=== PATIENT | male | born 1950 | race Hispanic/Latino ===

== ENCOUNTER 2019-04-05 09:00 | Emergency (ER) | payer OTHER ==
[2019-04-05] MEDS ORDERED: KETOROLAC TROMETHAMINE 30MG/ML ONE (10:31)
== END 2019-04-05 10:55 | disposition home or self-care (01) ==
LOC: EDH 09:00
DX: M77.32 Calcaneal spur, left foot (principal); M79.672 Pain in left foot; E11.9 Type 2 diabetes mellitus without complications; I10 Essential (primary) hypertension; E78.5 Hyperlipidemia, unspecified; Z90.49 Acquired absence of other specified parts of digestive tract; Z72.0 Tobacco use
CPT/HCPCS: 73630; 96372; 99284; J1885

== ENCOUNTER 2021-09-06 21:17 | Inpatient (IN) | payer MEDICARE, OTHER ==
[~2021-09-06] VITALS: Ht 167.6 cm; Wt 103.8 kg
[2021-09-06] MEDS ORDERED: ACETAMINOPHEN 500 MG TABLET PO ONE (22:00)
[2021-09-06] MEDS ORDERED: 0.9%NACL 1000ML 1,000 ML IV ONE (22:00)
[2021-09-06 22:05] LABS: ABG BASE EXCESS 2.2 mmol/L (-2.0-3.0); ABG OXYGEN SATURATION 97.8 % (95.0-99.0); ABG PCO2 38 mmHg (35-48)
[2021-09-06 22:07] LABS: BASOPHILS % (AUTO) 0.4 % (0.0-5.0); EOSINOPHILS % (AUTO) 0.7 % (0.0-8.0); HEMATOCRIT 47.3 % (42-54); LYMPHOCYTES % (AUTO) 2.5 % (21.0-51.0); MEAN CORPUSCULAR HEMOGLOBIN 31.4 pg (27.0-33.0); MEAN CORPUSCULAR HGB CONC 34.7 g/dL (32.0-36.0); MEAN CORPUSCULAR VOLUME 90.4 fL (79-99); NEUTROPHILS % (AUTO) 91.8 % (40.0-77.0); PLATELET COUNT (AUTO) 158 K/uL (130-400); RED BLOOD CELL COUNT(AUTO) 5.23 MIL/uL (4.50-6.20); RED CELL DISTRIBUTION WIDTH 12.2 % (11.0-15.5); WHITE BLOOD COUNT (AUTO) 13.3 K/uL (4.8-10.8)
[2021-09-06 22:22] LABS: CARBON DIOXIDE 28 mmol/L (21-32); CHLORIDE 95 mmol/L (101-111); CREATININE 0.9 mg/dL (0.5-1.5); GLOMERULAR FILTR. RATE CALC 89 mL/min (>60); GLUCOSE,RANDOM 289 mg/dL (70-105); POTASSIUM 3.8 mmol/L (3.5-5.1); SODIUM SERUM 131 mmol/L (136-145); UREA NITROGEN, BLOOD 12 mg/dL (7-18)
[2021-09-06 22:24] LABS: INR 1.05 (0.85-1.15); PROTHROMBIN TIME 11.4 SEC (9.6-11.6)
[2021-09-06 22:26] LABS: ALANINE AMINOTRANSFERASE 19 U/L (12-78); ALBUMIN 3.5 g/dL (3.5-5.0); ALCOHOL, BLOOD < 3 mg/dL (0-10); ASPARTATE AMINOTRANSFERASE 18 U/L (10-37); BILIRUBIN,TOTAL 0.5 mg/dL (0.2-1.0); CREATINE KINASE, TOTAL 138 U/L (21-232); TOTAL PROTEIN, SERUM 7.4 g/dL (6.0-8.3)
[2021-09-06 22:45] LABS: APPEARANCE,URINE Cloudy (CLEAR); BILIRUBIN,URINE Negative (NEGATIVE); COLOR,URINE Yellow (YELLOW); GLUCOSE, URINE (UA) >=1000 mg/dL (NEGATIVE); KETONES,URINE Negative (NEGATIVE); LEUKOCYTE ESTERASE ,URINE Negative (NEGATIVE); NITRATE,URINE Negative (NEGATIVE); OCCULT BLOOD,URINE Negative (NEGATIVE); PROTEIN,URINE POS 1+ mg/dL (NEGATIVE)
[2021-09-06 22:54] LABS: BACTERIA,URINE None Seen /HPF (None Seen); RBC,URINE None Seen /HPF (0-1); SQUAMOUS EPITHELIAL CELL,UR Rare /HPF (0-2); WBC,URINE None Seen /HPF (0-1); YEAST,URINE BUDDING None Seen /HPF (None Seen)
[2021-09-06 23:20] LABS: AMPHET/METH SCREEN,URINE NEGATIVE (NEGATIVE); BARBITURATE SCREEN, URINE NEGATIVE (NEGATIVE); BENZODIAZEPINES SCREEN,URINE NEGATIVE (NEGATIVE); CANNABINOID SCREEN,URINE NEGATIVE (NEGATIVE); COCAINE SCREEN,URINE NEGATIVE (NEGATIVE); OPIATE SCREEN,URINE NEGATIVE (NEGATIVE); PHENCYCLIDINE SCREEN,URINE NEGATIVE (NEGATIVE)
[2021-09-06] MEDS ORDERED: AZITHROMYCIN 500MG VIAL IVPB ONE (23:30)
[2021-09-06] MEDS ORDERED: CEFTRIAXONE 1G VIAL IVP ONE (23:30)
[2021-09-06] MEDS ORDERED: 0.9% NACL 250ML IVPB ONE (23:30)
[2021-09-06] MEDS ORDERED: AZITHROMYCIN 500MG+NS 250ML 250 ML IV ONE (23:47)
[2021-09-07] MEDS ORDERED: ZOLPIDEM TARTRATE 5 MG TAB PO PRN (00:30)
[2021-09-07] MEDS ORDERED: ACETAMINOPHEN 325 MG TAB PO PRN ×2 (00:30)
[2021-09-07] MEDS ORDERED: NITROGLYCERIN 0.4 MG SL TAB SL PRN (00:30)
[2021-09-07] MEDS ORDERED: IPRATROPIUM/ALBUTEROL SULFATE 3 ML SOLUTION IH PRN (00:30)
[2021-09-07] MEDS ORDERED: GLUCAGON 1MG KIT 1 MG ML IM PRN (00:30)
[2021-09-07] MEDS ORDERED: GUAIFENESIN-DM 200/20 MG 10 ML PO PRN (00:30)
[2021-09-07] MEDS ORDERED: MAG/ALUM/SIMETH 30 ML UDCUP PO PRN (00:30)
[2021-09-07] MEDS ORDERED: DEXTROSE 50%-WATER 50 ML DISP.SYRIN IV PRN (00:30)
[2021-09-07] MEDS ORDERED: LACTULOSE 20 GM/30 ML UDCUP PO PRN (00:30)
[2021-09-07] MEDS ORDERED: LABETALOL 20MG SYG IV PRN (00:30)
[2021-09-07] MEDS ORDERED: TRAZ-185 PO (01:02)
[2021-09-07] MEDS ORDERED: VALS80TA30 PO (01:02)
[2021-09-07 01:45] VITALS: BP 130/73
[2021-09-07] MEDS ORDERED: PLEC3TAB2 PO (02:14)
[2021-09-07] MEDS ORDERED: INSU200I4 SQ (02:14)
[2021-09-07 04:30] VITALS: BP 139/66
[2021-09-07] MEDS ORDERED: BENZONATATE 100 MG CAPSULE PO SCH (06:00)
[2021-09-07] MEDS ORDERED: TRAZODONE HCL 50 MG TAB PO SCH (06:00)
[2021-09-07] MEDS: INSULIN HUMULIN R 100 UNIT/ML 3ML SQ SCH ×4 (06:18→21:26)
[2021-09-07 06:32] LABS: HEMATOCRIT 48.9 % (42-54); MEAN CORPUSCULAR HEMOGLOBIN 30.8 pg (27.0-33.0); MEAN CORPUSCULAR HGB CONC 33.7 g/dL (32.0-36.0); MEAN CORPUSCULAR VOLUME 91.4 fL (79-99); PLATELET COUNT (AUTO) 176 K/uL (130-400); RED BLOOD CELL COUNT(AUTO) 5.35 MIL/uL (4.50-6.20); RED CELL DISTRIBUTION WIDTH 12.5 % (11.0-15.5); WHITE BLOOD COUNT (AUTO) 9.1 K/uL (4.8-10.8)
[2021-09-07 06:45] LABS: AMMONIA 16 umol/L (11-32)
[2021-09-07 07:00] VITALS: BP 126/67
[2021-09-07 07:18] LABS: CARBON DIOXIDE 28 mmol/L (21-32); CHLORIDE 101 mmol/L (101-111); CREATININE 0.7 mg/dL (0.5-1.5); GLOMERULAR FILTR. RATE CALC 119 mL/min (>60); GLUCOSE,RANDOM 197 mg/dL (70-105); POTASSIUM 3.8 mmol/L (3.5-5.1); SODIUM SERUM 136 mmol/L (136-145); THYROID STIMULATING HORMONE 0.96 uIU/mL (0.36-3.74); UREA NITROGEN, BLOOD 9 mg/dL (7-18)
[2021-09-07 07:43] LABS: BAND NEUTROPHILS % (MANUAL) 1 % (0-2); LYMPHOCYTES % (MANUAL) 4 % (22-44); MAN.DIFF COMMENT-IMPRESSION MANUAL DIFFERENTIAL; MONOCYTES % (MANUAL) 6 % (2-9); PLATELET MORPHOLOGY COMMENT ADEQUATE; SEGMENTED NEUTROPHILS % 89 % (40-70)
[2021-09-07] MEDS ORDERED: DIAZEPAM 5 MG TABLET PO PRN (08:00)
[2021-09-07] MEDS: ENOXAPARIN SODIUM 40 MG/0.4 ML SYRINGE SQ SCH ×2 (09:00→10:17)
[2021-09-07] MEDS: PLECANATIDE 3 MG PO SCH (09:00)
[2021-09-07] MEDS: FAMOTIDINE 20MG VIAL IV SCH (10:03)
[2021-09-07] MEDS: LOSARTAN 50 MG TABLET PO SCH (10:04)
[2021-09-07] MEDS: CEFTRIAXONE 1G VIAL IVP SCH (10:04)
[2021-09-07] MEDS: BENZONATATE 100 MG CAPSULE PO SCH ×2 (10:16→16:29)
[2021-09-07 11:00] VITALS: BP 130/82
[2021-09-07 15:00] VITALS: BP 152/85
[2021-09-07 20:00] VITALS: BP 126/71
[2021-09-07] MEDS ORDERED: LORAZEPAM 1 MG TABLET PO ONE (21:00)
[2021-09-07] MEDS ORDERED: AZITHROMYCIN 500MG VIAL IVPB SCH (21:00)
[2021-09-07] MEDS: RISPERIDONE 1 MG TABLET PO SCH (21:27)
[2021-09-07] MEDS: MIRTAZAPINE 15 MG TABLET PO SCH (21:28)
[2021-09-07] MEDS ORDERED: AZITHROMYCIN 500MG+NS 250ML 250 ML IV ONE (22:47)
[2021-09-07] MEDS ORDERED: 0.9% NACL 250ML 250 ML ONE (22:50)
[2021-09-08] VITALS: BP 148/81
[2021-09-08] MEDS: BENZONATATE 100 MG CAPSULE PO SCH ×3 (01:01→16:51)
[2021-09-08 04:00] VITALS: BP 132/75
[2021-09-08 06:14] LABS: HEMATOCRIT 46.7 % (42-54); MEAN CORPUSCULAR HGB CONC 33.4 g/dL (32.0-36.0); MEAN CORPUSCULAR VOLUME 92.7 fL (79-99); RED BLOOD CELL COUNT(AUTO) 5.04 MIL/uL (4.50-6.20); RED CELL DISTRIBUTION WIDTH 12.8 % (11.0-15.5); WHITE BLOOD COUNT (AUTO) 8.1 K/uL (4.8-10.8)
[2021-09-08] MEDS: INSULIN HUMULIN R 100 UNIT/ML 3ML SQ SCH ×4 (06:23→21:33)
[2021-09-08 06:34] LABS: CREATININE 0.7 mg/dL (0.5-1.5); POTASSIUM 3.7 mmol/L (3.5-5.1)
[2021-09-08 08:00] VITALS: BP 138/80
[2021-09-08] MEDS: PLECANATIDE 3 MG PO SCH (09:00)
[2021-09-08] MEDS: FAMOTIDINE 20MG VIAL IV SCH (09:08)
[2021-09-08] MEDS: LOSARTAN 50 MG TABLET PO SCH (09:09)
[2021-09-08] MEDS: RISPERIDONE 1 MG TABLET PO SCH ×2 (09:09→20:14)
[2021-09-08] MEDS: ENOXAPARIN SODIUM 40 MG/0.4 ML SYRINGE SQ SCH (09:09)
[2021-09-08] MEDS: CEFTRIAXONE 1G VIAL IVP SCH (09:09)
[2021-09-08 12:00] VITALS: BP 107/67
[2021-09-08 16:30] VITALS: BP 120/73
[2021-09-08 20:00] VITALS: BP 125/64
[2021-09-08] MEDS ORDERED: 0.9% NACL 250ML 250 ML ONE (20:11)
[2021-09-08] MEDS: MIRTAZAPINE 15 MG TABLET PO SCH (20:14)
[2021-09-08] MEDS ORDERED: AZITHROMYCIN 500MG+NS 250ML IV SCH (21:00)
[2021-09-09] VITALS: BP 126/76
[2021-09-09] MEDS: BENZONATATE 100 MG CAPSULE PO SCH ×3 (01:34→17:00)
[2021-09-09 04:00] VITALS: BP 120/74
[2021-09-09] MEDS: INSULIN HUMULIN R 100 UNIT/ML 3ML SQ SCH ×4 (06:35→16:30)
[2021-09-09 08:00] VITALS: BP 118/64
[2021-09-09] MEDS: PLECANATIDE 3 MG PO SCH (09:00)
[2021-09-09] MEDS: CEFTRIAXONE 1G VIAL IVP SCH (09:38)
[2021-09-09] MEDS: FAMOTIDINE 20MG VIAL IV SCH (09:38)
[2021-09-09] MEDS: LOSARTAN 50 MG TABLET PO SCH (09:38)
[2021-09-09] MEDS: RISPERIDONE 1 MG TABLET PO SCH (09:38)
[2021-09-09] MEDS: ENOXAPARIN SODIUM 40 MG/0.4 ML SYRINGE SQ SCH (09:39)
[2021-09-09 12:00] VITALS: BP 134/94
[2021-09-09] MEDS ORDERED: ALBU90AE IH (13:06)
[2021-09-09] MEDS ORDERED: LEVO500T90 PO (13:06)
[2021-09-09 16:30] VITALS: BP 124/82
== END 2021-09-09 18:00 | disposition home or self-care (01) | DRG 637 ==
LOC: EDH 21:17 → EDHIP 09-07 00:13 → OBSVTOIN 09-07 00:13 → 3CH 09-07 01:07
PROVIDERS: ADMIT Internal Medicine Critical Care Medicine; ATTEND Internal Medicine Critical Care Medicine
PROC: 5A09357 Assistance with Respiratory Ventilation, Less than 24 Consecutive Hours, Continuous Positive Airway Pressure (ICD-10-PCS; principal; 2021-09-08)
PROC: 5A09357 Assistance with Respiratory Ventilation, Less than 24 Consecutive Hours, Continuous Positive Airway Pressure (ICD-10-PCS; 2021-09-09)
DX: E11.649 Type 2 diabetes mellitus with hypoglycemia without coma (principal); J18.9 Pneumonia, unspecified organism; J44.0 Chronic obstructive pulmonary disease with (acute) lower respiratory infection; J44.1 Chronic obstructive pulmonary disease with (acute) exacerbation; E66.2 Morbid (severe) obesity with alveolar hypoventilation; F31.9 Bipolar disorder, unspecified; Z20.822 Contact with and (suspected) exposure to COVID-19; F41.1 Generalized anxiety disorder; F20.9 Schizophrenia, unspecified; E78.5 Hyperlipidemia, unspecified; I10 Essential (primary) hypertension; Z68.36 Body mass index [BMI] 36.0-36.9, adult; Z79.4 Long term (current) use of insulin
CPT/HCPCS: 36415; 36600; 70450; 71045; 80048; 80053; 80305; 81001; 82010; 82140; 82550; 82607; 82746; 82803; 82948; 83605; 84145; 84443; 84484; 85025; 85027; 85610; 87040; 87088; 87635; 87804; 93005; 94660; 94664; C9803; G0378; J0456; J0696; J1650; J1815; J3490; J7030; J7050

== ENCOUNTER 2022-04-12 04:55 | Emergency (ER) | payer MEDICARE ==
[~2022-04-12] VITALS: Ht 167.6 cm; Wt 126.1 kg
[~2022-04-12 04:55] MED LIST: ALBU90AE IH; INSU200I4 SQ; LEVO500T90 PO; PLEC3TAB2 PO; TRAZ-185 PO; VALS80TA30 PO
[2022-04-12 06:06] LABS: BASOPHILS % (AUTO) 0.5 % (0.0-5.0); EOSINOPHILS % (AUTO) 1.5 % (0.0-8.0); HEMATOCRIT 45.6 % (42-54); LYMPHOCYTES % (AUTO) 20.4 % (21.0-51.0); MEAN CORPUSCULAR HEMOGLOBIN 30.7 pg (27.0-33.0); MEAN CORPUSCULAR HGB CONC 33.6 g/dL (32.0-36.0); MEAN CORPUSCULAR VOLUME 91.4 fL (79-99); NEUTROPHILS % (AUTO) 67.8 % (40.0-77.0); PLATELET COUNT (AUTO) 239 K/uL (130-400); RED BLOOD CELL COUNT(AUTO) 4.99 MIL/uL (4.50-6.20); RED CELL DISTRIBUTION WIDTH 12.2 % (11.0-15.5); WHITE BLOOD COUNT (AUTO) 17.7 K/uL (4.8-10.8)
[2022-04-12 06:20] LABS: POTASSIUM 3.8 mmol/L (3.5-5.1)
[2022-04-12 06:25] LABS: BILIRUBIN,TOTAL 0.4 mg/dL (0.2-1.0); TOTAL PROTEIN, SERUM 7.5 g/dL (6.0-8.3)
[2022-04-12 06:43] LABS: CREATININE 0.8 mg/dL (0.5-1.5)
[2022-04-12 07:49] VITALS: BP 117/71
[2022-04-12] MEDS ORDERED: CEFTRIAXONE 1G VIAL IVP ONE (08:30)
[2022-04-12] MEDS ORDERED: DOXYCYCLINE HYCLATE 100 MG TABLET PO SCH (08:30)
[2022-04-12] MEDS ORDERED: DOXY-336 PO (08:58)
== END 2022-04-12 09:07 | disposition home or self-care (01) ==
LOC: EDH 04:55
DX: J20.8 Acute bronchitis due to other specified organisms (principal); B96.89 Other specified bacterial agents as the cause of diseases classified elsewhere; Z20.822 Contact with and (suspected) exposure to COVID-19; E11.9 Type 2 diabetes mellitus without complications; E78.00 Pure hypercholesterolemia, unspecified; F20.9 Schizophrenia, unspecified; I11.9 Hypertensive heart disease without heart failure; Z79.899 Other long term (current) drug therapy
CPT/HCPCS: 36415; 71045; 80053; 85025; 87635; 87804 ×2; 87880; 96374; 99284; C9803; J0696

== ENCOUNTER 2023-01-22 11:30 | Emergency (ER) | payer MEDICARE, OTHER ==
[~2023-01-22] VITALS: Ht 167.6 cm; Wt 104.3 kg
[~2023-01-22 11:30] MED LIST changes: +DOXY-469 PO; +LEVO-70 PO; -LEVO500T90 PO
[2023-01-22 12:42] LABS: BASOPHILS % (AUTO) 0.6 % (0.0-5.0); EOSINOPHILS % (AUTO) 2.2 % (0.0-8.0); HEMATOCRIT 47.1 % (42-54); LYMPHOCYTES % (AUTO) 24.7 % (21.0-51.0); MEAN CORPUSCULAR HGB CONC 33.3 g/dL (32.0-36.0); MEAN CORPUSCULAR VOLUME 89.9 fL (79-99); MONOCYTES % (AUTO) 7.8 % (3.0-13.0); NEUTROPHILS % (AUTO) 64.1 % (40.0-77.0); PLATELET COUNT (AUTO) 164 K/uL (130-400); RED BLOOD CELL COUNT(AUTO) 5.24 MIL/uL (4.50-6.20); RED CELL DISTRIBUTION WIDTH 12.6 % (11.0-15.5); WHITE BLOOD COUNT (AUTO) 11.2 K/uL (4.8-10.8)
[2023-01-22 12:51] LABS: CREATININE 0.7 mg/dL (0.5-1.5); POTASSIUM 4.1 mmol/L (3.5-5.1)
[2023-01-22 12:55] LABS: ALBUMIN 3.2 g/dL (3.5-5.0); TOTAL PROTEIN, SERUM 7.1 g/dL (6.0-8.3)
[2023-01-22 13:02] LABS: APPEARANCE,URINE CLEAR (CLEAR); BILIRUBIN,URINE NEGATIVE (NEGATIVE); COLOR,URINE LIGHT-YELLOW (YELLOW); GLUCOSE, URINE (UA) >=1000 mg/dL (NEGATIVE); KETONES,URINE NEGATIVE (NEGATIVE); LEUKOCYTE ESTERASE ,URINE NEGATIVE Leu/uL (NEGATIVE); MUCUS,URINE RARE LPF (None Seen); NITRATE,URINE NEGATIVE (NEGATIVE); OCCULT BLOOD,URINE NEGATIVE (NEGATIVE); PH,URINE 5.5 (5.0-8.0); PROTEIN,URINE 20 mg/dL (NEGATIVE); UROBILINOGEN,URINE 0.2 mg/dL (0.2-1.0); WBC,URINE 0-1 /HPF (0-1)
[2023-01-22] MEDS ORDERED: NAPR375T6 PO (14:33)
[2023-01-22 14:37] VITALS: BP 142/78
== END 2023-01-22 14:51 | disposition home or self-care (01) ==
LOC: EDH 11:30
DX: R59.9 Enlarged lymph nodes, unspecified (principal); M25.552 Pain in left hip; E11.9 Type 2 diabetes mellitus without complications; E78.00 Pure hypercholesterolemia, unspecified; F20.9 Schizophrenia, unspecified; F41.9 Anxiety disorder, unspecified; I10 Essential (primary) hypertension; M19.90 Unspecified osteoarthritis, unspecified site; Z79.899 Other long term (current) drug therapy; Z90.49 Acquired absence of other specified parts of digestive tract
CPT/HCPCS: 36415; 76882; 80053; 81001; 85025

== ENCOUNTER → 2023-03-24 | Outpatient (CLI) | payer OTHER ==
[~2023-03-24] MED LIST changes: +NAPR375T6 PO
== END | disposition home or self-care (01) ==
LOC: RAH 14:17
PROVIDERS: ATTEND Internal Medicine
DX: M47.26 Other spondylosis with radiculopathy, lumbar region (principal); M43.16 Spondylolisthesis, lumbar region; M47.812 Spondylosis without myelopathy or radiculopathy, cervical region; M48.02 Spinal stenosis, cervical region; M19.012 Primary osteoarthritis, left shoulder; M19.011 Primary osteoarthritis, right shoulder; M25.512 Pain in left shoulder; M25.511 Pain in right shoulder
CPT/HCPCS: 72040; 72100; 73030

== ENCOUNTER 2023-05-13 15:40 | Emergency (ER) | payer OTHER ==
[~2023-05-13] VITALS: Ht 167.6 cm; Wt 104.3 kg
[2023-05-13 15:46] VITALS: BP 130/84
[2023-05-13] MEDS ORDERED: HYDR-4060 PO (16:48)
== END 2023-05-13 16:56 | disposition home or self-care (01) ==
LOC: EDH 15:40
DX: M72.2 Plantar fascial fibromatosis (principal); M19.90 Unspecified osteoarthritis, unspecified site; I10 Essential (primary) hypertension; F32.A Depression, unspecified; E78.00 Pure hypercholesterolemia, unspecified; E11.9 Type 2 diabetes mellitus without complications; Z79.899 Other long term (current) drug therapy; Z90.49 Acquired absence of other specified parts of digestive tract

== ENCOUNTER → 2024-07-04 | Emergency (ER) | payer OTHER ==
[~2024-07-04] VITALS: Ht 167.6 cm; Wt 104.3 kg
[~2024-07-04] MED LIST changes: -DOXY-469 PO; +DOXY100C61 PO; +HYDR-4060 PO
[2024-07-04] MEDS: TRAMADOL HCL 50 MG TABLET PO ONE (10:30)
[2024-07-04 10:42] LABS: BASOPHILS # (AUTO) 0.07 K/uL (0.00-0.20); BASOPHILS % (AUTO) 0.5 % (0.0-5.0); EOSINOPHILS # (AUTO) 0.34 K/uL (0.00-0.70); EOSINOPHILS % (AUTO) 2.5 % (0.0-8.0); HEMATOCRIT 43.4 % (42-54); IMMATURE GRANULOCYTE ABSOLUTE 0.08 K/uL (0-1); LYMPHOCYTES # (AUTO) 3.9 K/uL (1.0-4.8); LYMPHOCYTES % (AUTO) 28.9 % (21.0-51.0); MEAN CORPUSCULAR HEMOGLOBIN 31.1 pg (27.0-33.0); MEAN CORPUSCULAR HGB CONC 34.8 g/dL (32.0-36.0); MEAN CORPUSCULAR VOLUME 89.3 fL (79-99); MONOCYTES # (AUTO) 1.1 K/uL (0.1-1.0); MONOCYTES % (AUTO) 8.1 % (3.0-13.0); NEUTROPHILS % (AUTO) 59.4 % (40.0-77.0); PLATELET COUNT (AUTO) 197 K/uL (130-400); RED BLOOD CELL COUNT(AUTO) 4.86 MIL/uL (4.50-6.20); WHITE BLOOD COUNT (AUTO) 13.4 K/uL (4.8-10.8)
[2024-07-04 10:54] LABS: CREATININE 0.8 mg/dL (0.5-1.3); POTASSIUM 3.6 mmol/L (3.5-5.1)
[2024-07-04 10:59] LABS: ALBUMIN 3.2 g/dL (3.5-5.0); BILIRUBIN,TOTAL 0.3 mg/dL (0.2-1.0); MAGNESIUM 1.8 mg/dL (1.80-2.40)
[2024-07-04 12:10] VITALS: BP 123/72; PULSE 90; RESP 16; O2SAT 98
== END ==
LOC: EDH 09:25
DX: N64.4 Mastodynia (principal); M54.2 Cervicalgia; M25.511 Pain in right shoulder; M25.551 Pain in right hip; E11.9 Type 2 diabetes mellitus without complications; E78.00 Pure hypercholesterolemia, unspecified; G89.29 Other chronic pain; I10 Essential (primary) hypertension; M19.90 Unspecified osteoarthritis, unspecified site; F32.A Depression, unspecified; Z79.899 Other long term (current) drug therapy; Z90.49 Acquired absence of other specified parts of digestive tract
CPT/HCPCS: 36415; 71046; 73502; 80053; 83735; 84484; 85025; 93005

== ENCOUNTER 2024-11-15 06:07 | Emergency (ER) | payer OTHER ==
[~2024-11-15] VITALS: Ht 167.6 cm; Wt 83.9 kg
[~2024-11-15 06:07] MED LIST changes: +NAPR-1505 PO; -NAPR375T6 PO
[2024-11-15 06:27] VITALS: BP 126/66; PULSE 84; RESP 18; TEMP 98.5; O2SAT 99
[2024-11-15] MEDS ORDERED: CIPR7.5D7 OTIC (07:20)
[2024-11-15] MEDS ORDERED: AMOX500C2 PO (07:20)
--- NOTE | 2024-11-15 07:20 | ERN ---
General Chief Complaint: Earache Stated Complaint: earache Time Seen by MD: 07:11 Source: patient History of Present Illness Initial Comments Patient is a 74-year-old male coming in to be evaluated for bilateral ear pain. Patient states that the ear pain began a couple of days ago. He also states he has a sensation of a foreign body in the right external ear which causes him some discomfort. Allergies: Coded Allergies: No Known Drug Allergies (Unverified Allergy, Unknown, 07/22/19) Home Meds Active Scripts Hydrocodone/Acetaminophen (Hydrocodon-Acetaminophen 5-325) 1 Each Tablet, 1 EACH PO Q6H for pain, #16 TAB 0 Refills Prov:ANDRÉS BOBBY MD 05/13/23 Naproxen (Naproxen) 375 Mg Tablet.dr, 375 MG PO BID for 7 Days, #14 TAB Prov:RAMON CHAUDHARI MD 01/22/23 Doxycycline Monohydrate (Doxycycline Monohydrate) 100 Mg Capsule, 1 CAP PO BID for 10 Days, #20 CAP 0 Refills Prov:DANIELLE REARDON MD 04/12/22 Levofloxacin (Levofloxacin) 500 Mg Tablet, 500 MG PO DAILY for 5 Days, #5 TAB Prov:JODIE CANSECO AGACNP 09/09/21 Albuterol Sulfate (Proair Respiclick) 90 Mcg Aer.pow.ba, 180 MCG IH Q6HPRN PRN for SHORTNESS OF BREATH/WHEEZING for 30 Days, #1 INHALER 1 Refill Prov:JODIE CANSECO AGACNP 09/09/21 Reported Medications Plecanatide (Trulance) 3 Mg Tablet, 3 MG PO DAILY, TAB 09/07/21 Insulin Degludec (Tresiba Flextouch U-200) 200 Unit/1 Ml Insuln.pen, 40 UNIT SQ HS, SYRINGE 09/07/21 Trazodone HCl (Trazodone HCl) 50 Mg Tablet, 50 MG PO HSPRN, TAB 09/07/21 Valsartan (Valsartan) 80 Mg Tablet, 80 MG PO DAILY, TAB 09/07/21 Past Medical History Past Medical History: Anxiety, Diabetes-Type II Medical History Other: RT SHOULDER INJURY Past Surgical History: None Additional History Comments: Remote psychiatric hospitalization for schizophrenia Social History Social History: Lives with family, Other ROS Dictation CONSTITUTIONAL: No chills, no fever, no weakness, no diaphoresis, no malaise. HEAD/FACE: No signs of trauma. EENT: No eye pain, no blurred vision, no tearing, no double vision, ear pain, ear discharge, no nose pain, no nasal congestion, no throat pain, no throat swelling, no mouth pain. RESPIRATORY: No cough, no orthopnea, no SOB, no stridor, no wheezing. CARDIOVASCULAR: No chest pain, no edema, no palpitations, no syncope. GASTROINTESTINAL/ABDOMINAL: No abdominal pain, no constipation, no diarrhea, no nausea, no vomiting. GENITOURINARY: No abnormal discharge, no dysuria, no frequent urination, no hematuria. No complaints of pain in the genitals. MUSCULOSKELETAL: No back pain, no gout, no joint pain, no joint swelling, no muscle pain, no muscle stiffness, no neck pain. INTEGUMENTARY: No change in color, no change in hair/nails, no dryness, no lesion, no lumps, no rash. NEUROLOGICAL/PSYCH: No anxiety, not depressed, no emotional problem, no headache, no numbness, no pre-existing deficit, no history of seizures, no tremors, no weakness. HEMATOLOGIC/LYMPHATIC: Not anemic, no history of blood clots, no apparent bleeding, no bruising, glands not swollen. All Systems Negative, Except as Noted. Physical Exam Physical Exam Dictation VITAL SIGNS: Reviewed. GENERAL APPEARANCE: Alert, oriented x3, no acute distress, obese. HEAD AND FACE: Non-traumatic. EYES: PERRL, pink conjunctivas, eyelid no trauma, anterior chamber clear. EARS: Pinnas intact and no signs of trauma or erythema. Ear canals erythema mild discharge. TMs no erythema. NOSE: No discharge, no bleeding. OROPHARYNX: Mouth normal, teeth no caries, tongue pink. Pharynx clear, no erythema. Tonsils no exudates, no abscesses noted. Mucous membrane moist. NECK: Supple, non-tender, no thyromegaly, no masses, no JVD, no bruits. BREAST: Deferred. CHEST: No tenderness, no crepitus, no paradoxical movement, no retractions. LUNGS: Clear, well-ventilated, symmetric, no rales, no wheezing, no rhonchi, no stridor, good breath sounds bilaterally. HEART: Regular rate, regular rhythm, no murmur, no gallops. VASCULAR: No peripheral edema. ABDOMEN: Soft, positive bowel sounds, nondistended, no guarding, nontender, no rebound, no masses no hepatomegaly, no splenomegaly, no Barnhart's sign, no hernias. RECTAL: Deferred. GENITAL: Deferred. NEUROLOGICAL: Normal speech, gross motor function intact, gross sensory function intact. MUSCULOSKELETAL: Neck nontender, full range of motion, back nontender, full range of motion. EXTREMITIES: Nontender, full range of motion. SKIN: Color pink, dry, no turgor, no rash, no lacerations, no abrasions, no contusions. LYMPHATICS: Deferred. Results Laboratory and Microbiology Labs Reviewed?: Yes MDM MDM: Differential diagnosis: Otitis externa, foreign body in the ear, otitis media, Patient is a 74-year-old male coming in to be evaluated for ear pain. Upon evaluation there is mild erythema of the tympanic membrane as well as the external ear canal. Antibiotics will be provided I advised him appropriate follow up with PCP in 1-2 days. ED Course Vital Signs Date Time Temp Pulse Resp B/P (MAP) Pulse Ox O2 Delivery O2 Flow Rate FiO2 11/15/24 06:27 98.4 84 18 126/66 99 Room Air* 0 21 11/15/24 06:10 86 18 154/88 99 Room Air DX & DISP Disposition: Discharge Departure Impression: Primary Impression: Otitis externa Condition: Stable Scripts Amoxicillin (Amoxicillin) 500 Mg Capsule 1 CAP PO TID for 10 Days, #30 CAP 0 Refills Prov: RAMON CHAUDHARI MD 11/15/24 Ciprofloxacin HCl/Dexameth (Ciproflox-Dexameth Otic Susp) 0.3 %-0.1 % Drops.susp 4 DROP OTIC BID for 7 Days, #7.5 ML 0 Refills Prov: RAMON CHAUDHARI MD 11/15/24 Additional Instructions: FOLLOW-UP WITH PRIMARY CARE PROVIDER IN 1 TO 2 DAYS. TAKE MEDICATIONS DIRECTED HERE IN THE EMERGENCY ROOM. OKAY TO CONTINUE HOME MEDICATIONS UNLESS OTHERWISE DISCUSSED DURING YOUR VISIT IN THE EMERGENCY ROOM TODAY. RETURN TO YOUR NEAREST EMERGENCY ROOM IF SYMPTOMS WORSEN OR IF THERE IS NO IMPROVEMENT. CALL 911 IF YOU NEED IMMEDIATE ASSISTANCE. TAKE TYLENOL [id number] N EEDED AND IF NO CONTRAINDICATIONS ARE PRESENT. INCREASE ORAL HYDRATION. A WOUND CULTURE OR URINE CULTURE WAS ORDERED HERE IN THE EMERGENCY ROOM DEPARTMENT PLEASE FOLLOW-UP WITH PRIMARY CARE PROVIDER AND ADVISE THEM TO GET REPEAT PORTS FROM OUR FACILITY. IF YOU HAD ANY VINCE WRAP/SPLINTS THAT WERE APPLIED HERE, PLEASE DO NOT REMOVE THEM UNTIL YOU SEE YOUR PRIMARY CARE OR SPECIALTY. Referrals: Referrals: SELF,REFERRAL (PCP) PROSPER ZARCO MD Time of Disposition: 07:18 RAMON CHAUDHARI MD Nov 15, 2024 07:20
== END 2024-11-15 07:52 | disposition home or self-care (01) ==
LOC: EDH 06:07
DX: H60.93 Unspecified otitis externa, bilateral (principal); F41.9 Anxiety disorder, unspecified; E11.9 Type 2 diabetes mellitus without complications; Z79.899 Other long term (current) drug therapy
CPT/HCPCS: 99283

== ENCOUNTER 2025-03-26 09:33 | Emergency (ER) | payer OTHER ==
[~2025-03-26] VITALS: Ht 165.1 cm; Wt 99.8 kg
[~2025-03-26 09:33] MED LIST changes: +AMOX500C2 PO; +CIPR7.5D7 OTIC; +DOXY-466 PO; -DOXY100C61 PO
--- NOTE | 2025-03-26 10:01 | ERN ---
General Chief Complaint: FOOT INJURY/PAIN Stated Complaint: "BURNING" TO BILATERAL FEET Time Seen by MD: 09:46 History of Present Illness Initial Comments 75-year-old male, history of longstanding diabetes, presents for bilateral feet, and leg pain. Patient reports for the last few months he has had on and off pains in the feet, ankles, shins and knees. He reports occasion it swells in the gets better. He reports that it is worse at night. He describes it as a burning sensation. He was told that he may have some neuropathy. He was ambulatory. No systemic illness such as fevers, vomiting, diarrhea or other. Allergies: Coded Allergies: No Known Drug Allergies (Unverified Allergy, Unknown, 07/22/19) Home Meds Active Scripts Amoxicillin (Amoxicillin) 500 Mg Capsule, 1 CAP PO TID for 10 Days, #30 CAP 0 Refills Prov:RAMON CHAUDHARI MD 11/15/24 Ciprofloxacin HCl/Dexameth (Ciproflox-Dexameth Otic Susp) 0.3 %-0.1 % Drops.susp, 4 DROP OTIC BID for 7 Days, #7.5 ML 0 Refills Prov:RAMON CHAUDHARI MD 11/15/24 Hydrocodone/Acetaminophen (Hydrocodon-Acetaminophen 5-325) 1 Each Tablet, 1 EACH PO Q6H for pain, #16 TAB 0 Refills Prov:ANDRÉS BOBBY MD 05/13/23 Naproxen (Naproxen) 375 Mg Tablet.dr, 375 MG PO BID for 7 Days, #14 TAB Prov:RAMON CHAUDHARI MD 01/22/23 Doxycycline Monohydrate (Doxycycline Monohydrate) 100 Mg Capsule, 1 CAP PO BID for 10 Days, #20 CAP 0 Refills Prov:DANIELLE REARDON MD 04/12/22 Levofloxacin (Levofloxacin) 500 Mg Tablet, 500 MG PO DAILY for 5 Days, #5 TAB Prov:JODIE CANSECO NP 09/09/21 Albuterol Sulfate (Proair Respiclick) 90 Mcg Aer.pow.ba, 180 MCG IH Q6HPRN PRN for SHORTNESS OF BREATH/WHEEZING for 30 Days, #1 INHALER 1 Refill Prov:JODIE CANSECO NP 09/09/21 Reported Medications Plecanatide (Trulance) 3 Mg Tablet, 3 MG PO DAILY, TAB 09/07/21 Insulin Degludec (Tresiba Flextouch U-200) 200 Unit/1 Ml Insuln.pen, 40 UNIT SQ HS, SYRINGE 09/07/21 Trazodone HCl (Trazodone HCl) 50 Mg Tablet, 50 MG PO HSPRN, TAB 09/07/21 Valsartan (Valsartan) 80 Mg Tablet, 80 MG PO DAILY, TAB 09/07/21 Past Medical History Past Medical History: Anxiety, Diabetes-Type II, High Cholesterol, Hypertension, Schizophrenia Medical History Other: RT SHOULDER INJURY Past Surgical History: None Additional History Comments: Remote psychiatric hospitalization for schizophrenia Social History Social History: Lives with family, Other ROS Dictation CONSTITUTIONAL: No chills, no fever, no weakness, no diaphoresis, no malaise. HEAD/FACE: No signs of trauma. EENT: No eye pain, no blurred vision, no tearing, no double vision, no ear pain, no ear discharge, no nose pain, no nasal congestion, no throat pain, no throat swelling, no mouth pain. RESPIRATORY: No cough, no orthopnea, no SOB, no stridor, no wheezing. CARDIOVASCULAR: No chest pain, no edema, no palpitations, no syncope. GASTROINTESTINAL/ABDOMINAL: No abdominal pain, no constipation, no diarrhea, no nausea, no vomiting. GENITOURINARY: No abnormal discharge, no dysuria, no frequent urination, no hematuria. No complaints of pain in the genitals. MUSCULOSKELETAL: Bilateral burning feet pain INTEGUMENTARY: No change in color, no change in hair/nails, no dryness, no lesion, no lumps, no rash. NEUROLOGICAL/PSYCH: No anxiety, not depressed, no emotional problem, no headache, no numbness, no pre-existing deficit, no history of seizures, no tremors, no weakness. HEMATOLOGIC/LYMPHATIC: Not anemic, no history of blood clots, no apparent bleeding, no bruising, glands not swollen. All Systems Negative, Except as Noted. Physical Exam Physical Exam Dictation VITAL SIGNS: Reviewed. GENERAL APPEARANCE: Alert, oriented x3, no acute distress, obese. HEAD AND FACE: Non-traumatic. EYES: PERRL, pink conjunctivas, eyelid no trauma, anterior chamber clear. EARS: Pinnas intact and no signs of trauma or erythema. Ear canals clear and no discharge. TMs no erythema. NOSE: No discharge, no bleeding. OROPHARYNX: Mouth normal, teeth no caries, tongue pink. Pharynx clear, no erythema. Tonsils no exudates, no abscesses noted. Mucous membrane moist. NECK: Supple, non-tender, no thyromegaly, no masses, no JVD, no bruits. BREAST: Deferred. CHEST: No tenderness, no crepitus, no paradoxical movement, no retractions. LUNGS: Clear, well-ventilated, symmetric, no rales, no wheezing, no rhonchi, no stridor, good breath sounds bilaterally. HEART: Regular rate, regular rhythm, no murmur, no gallops. VASCULAR: No peripheral edema. ABDOMEN: Soft, positive bowel sounds, nondistended, no guarding, nontender, no rebound, no masses no hepatomegaly, no splenomegaly, no Barnhart's sign, no hernias. RECTAL: Deferred. GENITAL: Deferred. NEUROLOGICAL: Normal speech, gross motor function intact, gross sensory function intact. MUSCULOSKELETAL: Neck nontender, full range of motion, back nontender, full range of motion. EXTREMITIES: Nontender, full range of motion. SKIN: Color pink, dry, no turgor, no rash, no lacerations, no abrasions, no contusions. LYMPHATICS: Deferred. Results Laboratory and Microbiology Lab and Micro Result Laboratory Tests Test 03/26/25 09:38 03/26/25 10:27 Whole Blood Glucose 196 MG/DL (70-110) H White Blood Count 10.5 K/uL (4.8-10.8) Red Blood Count 5.06 MIL/uL (4.50-6.20) Hemoglobin 15.8 g/dL (14.0-18.0) Hematocrit 47.0 % (42-54) Mean Corpuscular Volume 92.9 fL (79-99) Mean Corpuscular Hemoglobin 31.2 pg (27.0-33.0) Mean Corpuscular Hemoglobin Concent 33.6 g/dL (32.0-36.0) Red Cell Distribution Width 13.2 % (11.0-15.5) Platelet Count 175 K/uL (130-400) Mean Platelet Volume 11.5 fL (7.5-10.5) H Immature Granulocyte % (Auto) 0.4 % (0-1) Neutrophils (%) (Auto) 56.4 % (40.0-77.0) Lymphocytes (%) (Auto) 29.9 % (21.0-51.0) Monocytes (%) (Auto) 9.4 % (3.0-13.0) Eosinophils (%) (Auto) 3.4 % (0.0-8.0) Basophils (%) (Auto) 0.5 % (0.0-5.0) Neutrophils # (Auto) 6.0 K/uL (1.8-7.7) Lymphocytes # (Auto) 3.2 K/uL (1.0-4.8) Monocytes # (Auto) 1.0 K/uL (0.1-1.0) Eosinophils # (Auto) 0.36 K/uL (0.00-0.70) Basophils # (Auto) 0.05 K/uL (0.00-0.20) Absolute Immature Granulocyte (auto 0.04 K/uL (0-1) Nucleated Red Blood Cells 0.0 % (0.0-0.19) Erythrocyte Sedimentation Rate 11 MM/HR (0-20) Sodium Level 139 mmol/L (136-145) Potassium Level 3.8 mmol/L (3.5-5.1) Chloride Level 101 mmol/L (101-111) Carbon Dioxide Level 31 mmol/L (21-32) Blood Urea Nitrogen 10 mg/dL (7-18) Creatinine 0.8 mg/dL (0.5-1.3) Glomerular Filtration Rate Calc 93 mL/min (>90) Random Glucose 164 mg/dL (70-105) H Total Calcium 8.6 mg/dL (8.5-10.1) Magnesium Level 2.10 mg/dL (1.80-2.40) C-Reactive Protein, Quantitative 3.40 mg/L (0.5-3.0) H MDM CC: Bilateral foot burning /pain increasing over last few months Historian: Patient Comorbidities: Anxiety, diabetes type 2, dyslipidemia, hypertension, schizophrenia Limitations by social determinants of health: None Differential diagnosis includes diabetic neuropathy, autoimmune disorder, arthritis, DVT, cellulitis, for pain trauma, other. Vital signs: Hypertensive otherwise unremarkable. Baseline for patient. Labs (independently ordered and interpreted by me ): No leukocytosis or anemia. Chemistry panel is unremarkable. Glucose 196. CRP 3.4. DVT study per my independent interpretation is unremarkable. bilateral ankle x-rays per my independent interpretation shows no acute fractures or abnormalities. Left knee x-ray is unremarkable per my independent interpretation Right knee x-ray does show comminuted tibial plateau fracture. Patient was no swelling or injury to this area currently. I palpated the area multiple times and there was no pain or tenderness. Patient reports he did break his leg years ago and thinks this may be chronic. Very unlikely to be an acute placed toe fracture. He was ambulatory. Symptoms most consistent with diabetic neuropathy. His labs and vital signs are all stable. He is ambulatory. We will discharge with gabapentin recommend PCP follow up. ED Course Orders Procedure Category Date Status Time Cbc With Differential LAB 03/26/25 Complete 09:46 Basic Metabolic Panel LAB 03/26/25 Complete 09:46 Magnesium LAB 03/26/25 Complete 09:46 Crp Quantitative LAB 03/26/25 Complete 09:46 Erythrocyte LAB 03/26/25 Complete Sedimentation Rate 09:46 Us Venous Doppler US 03/26/25 Resulted Bilateral 09:46 Ketorolac PHA 03/26/25 Complete Tromethamine 15mg/Ml 10:00 Ankle Comp 3vws Lt RAD 03/26/25 Resulted 10:01 Ankle Comp 3vws Rt RAD 03/26/25 Resulted 10:01 Knee 3vws Lt RAD 03/26/25 Resulted 10:01 Knee 3vws Rt RAD 03/26/25 Resulted 10:01 Current Medications Medications (Trade) Dose Ordered Sig/Mine Route PRN Reason Start Time Stop Time Status Last Admin Dose Admin Ketorolac Tromethamine (toRADol) 15 mg ONCE ONCE IV 03/26/25 10:00 03/26/25 10:01 DC 03/26/25 10:52 Vital Signs Date Time Temp Pulse Resp B/P (MAP) Pulse Ox O2 Delivery O2 Flow Rate FiO2 03/26/25 09:35 97.5 88 16 173/104 98 Room Air 0 DX & DISP Disposition: Discharge Departure Impression: Primary Impression: Diabetic neuropathy Condition: Stable Scripts Meloxicam (Meloxicam) 15 Mg Tablet 15 MG PO DAILY PRN for PAIN for 10 Days, #10 TAB Prov: TOM SCHNEIDER DO 03/26/25 Gabapentin (Gabapentin) 100 Mg Capsule 1 CAP PO TID for 30 Days, #90 CAP 0 Refills Prov: TOM SCHNEIDER DO 03/26/25 Additional Instructions: Your symptoms are most consistent with diabetic neuropathy. Your blood work (CBC, metabolic panel, ESR, CRP) is unremarkable. Your ultrasound of the legs is negative for blood clots. The right knee x-ray does show an old fracture to your upper knee. This is unlikely to be causing your symptoms. The rest of the x-rays are unremarkable. I have prescribed gabapentin, which is a medication that may help with your diabetic neuropathy. Take one tab 3 times a day for the next week. Follow up with the primary doctor because you may need to increase this dosing. You can continue taking all other home medications. I have also prescribed meloxicam, which is a nonsteroidal anti-inflammatory. You can take this once per day as needed for pain. Please follow up with your primary doctor. Return to the emergency department as needed. Referrals: SELF,REFERRAL (PCP) TOM SCHNEIDER DO Mar 26, 2025 10:01
[2025-03-26 10:48] LABS: BASOPHILS # (AUTO) 0.05 K/uL (0.00-0.20); BASOPHILS % (AUTO) 0.5 % (0.0-5.0); EOSINOPHILS # (AUTO) 0.36 K/uL (0.00-0.70); EOSINOPHILS % (AUTO) 3.4 % (0.0-8.0); IMMATURE GRANULOCYTE ABSOLUTE 0.04 K/uL (0-1); LYMPHOCYTES # (AUTO) 3.2 K/uL (1.0-4.8); LYMPHOCYTES % (AUTO) 29.9 % (21.0-51.0); MEAN CORPUSCULAR HEMOGLOBIN 31.2 pg (27.0-33.0); MEAN CORPUSCULAR HGB CONC 33.6 g/dL (32.0-36.0); MEAN CORPUSCULAR VOLUME 92.9 fL (79-99); MONOCYTES % (AUTO) 9.4 % (3.0-13.0); NEUTROPHILS % (AUTO) 56.4 % (40.0-77.0); PLATELET COUNT (AUTO) 175 K/uL (130-400); RED BLOOD CELL COUNT(AUTO) 5.06 MIL/uL (4.50-6.20); RED CELL DISTRIBUTION WIDTH 13.2 % (11.0-15.5); WHITE BLOOD COUNT (AUTO) 10.5 K/uL (4.8-10.8)
[2025-03-26] MEDS: ketOROlac 15MG/ML VIAL (15MG/ML) IV ONE (10:52)
--- NOTE | 2025-03-26 10:54 | HMCIMG ---
ULTRASOUND VENOUS DOPPLER, BILATERAL LOWER EXTREMITIES INDICATION: Bilateral lower extremity pain and swelling TECHNIQUE: Routine grayscale and color Doppler ultrasound of the bilateral lower extremity veins performed. COMPARISON: No priors. FINDINGS: The demonstrated veins of the bilateral lower extremity including the common femoral vein, femoral vein, and popliteal vein are associated with normal compressibility, augmentation, and flow. Normal respiratory variation was identified. No evidence for echogenic intraluminal thrombus formation. IMPRESSION: No sonographic evidence for deep venous thrombosis within the bilateral lower extremity veins.
--- NOTE | 2025-03-26 10:54 | HMCIMG ---
RIGHT ANKLE RADIOGRAPHS - 3 VIEWS INDICATION: Pain COMPARISON: None FINDINGS: AP, lateral, and oblique views. No acute fracture or subluxation identified. Chronic distal right tibial fracture deformity. The talar dome is intact. Ankle mortise and tibial plafond are well maintained. No significant joint effusion is present. No radiopaque foreign body noted. IMPRESSION: No evidence for fracture or dislocation.
--- NOTE | 2025-03-26 10:58 | HMCIMG ---
LEFT KNEE RADIOGRAPHS - 3 VIEWS INDICATION: Pain COMPARISON: None FINDINGS: AP, lateral, and oblique views. No fracture or dislocation identified. No significant joint effusion is present. Overlying soft tissues appear normal. No radiopaque foreign body noted. IMPRESSION: No evidence for fracture or dislocation. RIGHT KNEE RADIOGRAPHS - 3 VIEWS INDICATION: Pain COMPARISON: None FINDINGS: AP, lateral, and oblique views. Slightly displaced comminuted posterolateral tibial plateau fracture better visualized on the lateral view. Chronic proximal right fibular shaft fracture deformity. No significant joint effusion is present. Overlying soft tissues appear normal. IMPRESSION: Slightly displaced comminuted posterolateral tibial plateau fracture better visualized on the lateral view.
--- NOTE | 2025-03-26 10:58 | HMCIMG ---
LEFT ANKLE RADIOGRAPHS - 3 VIEWS INDICATION: Pain COMPARISON: None FINDINGS: AP, lateral, and oblique views. No fracture or dislocation identified. The talar dome is intact. Ankle mortise and tibial plafond are well maintained. No significant joint effusion is present. Miniscule plantar calcaneal spur. IMPRESSION: No evidence for fracture or dislocation.
[2025-03-26 11:05] LABS: CREATININE 0.8 mg/dL (0.5-1.3); MAGNESIUM 2.1 mg/dL (1.80-2.40); POTASSIUM 3.8 mmol/L (3.5-5.1)
[2025-03-26 11:53] LABS: ERYTHROCYTE SEDIMENTATION RATE 11 MM/HR (0-20)
[2025-03-26] MEDS ORDERED: GABA-529 PO (11:59)
[2025-03-26] MEDS ORDERED: MELO-108 PO (11:59)
[2025-03-26 12:01] VITALS: BP 137/70; PULSE 60; RESP 18; TEMP 98.6; O2SAT 99
--- NOTE | 2025-03-26 12:10 | NUR ---
SPOKE TO DIALYSIS NURSE TREY MADRIGAL
[2025-03-26] MEDS: HYDROcodone/APAP 5/325 1 TAB TABLET PO ONE (12:25)
== END 2025-03-26 12:39 | disposition home or self-care (01) ==
LOC: EDH 09:33
DX: E11.40 Type 2 diabetes mellitus with diabetic neuropathy, unspecified (principal); E78.00 Pure hypercholesterolemia, unspecified; F20.9 Schizophrenia, unspecified; F41.9 Anxiety disorder, unspecified; I10 Essential (primary) hypertension; Z79.899 Other long term (current) drug therapy
CPT/HCPCS: 99285; 93970; 96374; 83735; 80048; 85025; 85651; 82948; 86140; 36415; 73610; 73562; J1885